=== PATIENT | male | born 1980 | race Caucasian/White ===

== ENCOUNTER 2020-06-02 23:51 | Inpatient (IN) ==
[2020-06-03] MEDS ORDERED: Gadolinium Contrast Agent (WT Based) IV PRN ×2 (00:20→08:22)
[2020-06-03] MEDS ORDERED: Vancomycin 1,250 MG/262.5 ML IV.SOLN IVPB ONE (00:23)
[2020-06-03] MEDS ORDERED: MetroNIDAZOLE 500 MG/100 ML 500 MG/100 ML BAG IVPB ONE (00:23)
[2020-06-03] MEDS ORDERED: Cefepime HCl 2,000 MG in 0.9 % Sodium Chloride Mini Bag 100 ML IVPB ONE (00:23)
[2020-06-03] MEDS ORDERED: Acyclovir 500 MG in D5% in Water 100 ML IVPB ONE (00:25)
[2020-06-03] MEDS ORDERED: Morphine Sulfate 2 MG/ML SYRINGE IVP ONE (00:55)
[2020-06-03 01:06] LABS: Basophils % 0.3 %; Eosinophils % 0.1 %; Hematocrit 34.9 % (37.5-50.1); Hemoglobin 11.7 g/dL (12.9-16.9); Immature Granulocytes % 0.3 % (0-4); Lymphocytes # 1.7 K/mcL (0.6-4.6); Lymphocytes % 18.8 %; Mean Corpuscular HGB Conc 33.5 g/dL (31.6-35.5); Mean Corpuscular Hemoglobin 28.7 pg (28.0-33.3); Mean Corpuscular Volume 85.5 fL (83.0-100.0); Mean Platelet Volume 10.1 fL (9.4-12.4); Monocytes # 1.3 K/mcL (0.0-1.3); Monocytes % 14.5 %; Platelet Count 120 K/mcL (140-400); Red Blood Count 4.08 M/mcL (4.19-5.50); Red Cell Distribution Width 13.9 % (11.5-14.5)
[2020-06-03 01:07] LABS: INR 1.3; Prothrombin Time 15.3 Seconds (9.4-12.1)
[2020-06-03 01:18] LABS: Activated Partial Thrombo Time 31.8 Seconds (26.0-36.0)
[2020-06-03 01:25] LABS: Alanine Aminotransferase 29 Units/L (7-52); Albumin 3.6 g/dL (3.5-5.7); Alkaline Phosphatase 113 Units/L (34-104); Aspartate Amino Transferase 19 Units/L (13-39); BUN/Creatinine Ratio 19 (6-26); Bilirubin,Direct 0.2 mg/dL (0.0-0.2); Bilirubin,Indirect 0.6 mg/dL (0.0-1.0); Bilirubin,Total 0.8 mg/dL (0.3-1.0); Blood Urea Nitrogen 15 mg/dL (6-20); Carbon Dioxide 24 mEq/L (23-29); Chloride 96 mEq/L (98-107); Globulin 3.5 g/dL (2.4-3.5); Glucose 125 mg/dL (70-105); Lipase 6 Units/L (11-82); Magnesium 1.4 mg/dL (1.6-2.6); Osmolality,Calculated 272 (280-300); Phosphorous 3.2 mg/dL (2.7-4.5); Sodium 130 mEq/L (136-145); Total Protein 7.1 g/dL (6.4-8.9); eGFR For African Americans > 60 (> 60); eGFR For Non-African Americans > 60 (> 60)
[2020-06-03 01:26] LABS: Troponin I < 0.03 ng/mL (< 0.04)
[2020-06-03] MEDS ORDERED: *HR* HYDROmorphone (PF) 1 MG/ML SYRINGE IVP ONE ×2 (01:43→02:32)
[2020-06-03 01:57] LABS: Bacteria,Urine Few per hpf (None-Few); Bilirubin,Urine Negative (Negative); Blood,Urine Large (Negative); Calcium Oxalate Crystals,Urine Present; Clarity,Urine Clear (Clear); Color,Urine Yellow (Yellow); Glucose,Urine (UA) Normal (Normal); Ketones,Urine Negative (Negative); Leukocyte Esterase,Urine Negative (Negative); Nitrite,Urine Negative (Negative); PH,Urine 6.5 pH Units (5.0-8.0); Protein,Urine 50 mg/dL (Neg-Trace); RBC,Urine TNTC per hpf (0-3); Specific Gravity,Urine 1.025 (1.010-1.025); Squamous Epithelial Cell,Urine Few per hpf (None-Few); Urobilinogen,Urine >=8.0 mg/dL (Normal)
[2020-06-03 03:03] LABS: Amphetamine Screen,Urine Positive ng/mL (Cutoff=1000); Barbiturate Screen,Urine Negative ng/mL (Cutoff=200); Benzodiazepines Screen,Urine Negative ng/mL (Cutoff=200); Cannabinoid Screen,Urine Positive ng/mL (Cutoff = 50); Cocaine Screen,Urine Negative ng/mL (Cutoff= 300); Opiate Screen,Urine Positive ng/mL (Cutoff=300); Phencyclidine Screen,Urine Negative ng/mL (Cutoff=25)
[2020-06-03] MEDS ORDERED: Isovue-370 500 ML BOTTLE IVP ONE ×2 (05:13→08:40)
[2020-06-03 05:59] LABS: Adenovirus Not Detected (Not Detect); Coronavirus 229E Not Detected (Not Detect); Coronavirus HKU1 Not Detected (Not Detect); Coronavirus NL63 Not Detected (Not Detect); Coronavirus OC43 Not Detected (Not Detect)
[2020-06-03 06:00] LABS: Bordetella Pertussis Not Detected (Not Detect); Chlamydophila pneumoniae Not Detected (Not Detect); Human Metapneumovirus Not Detected (Not Detect); Human Rhinovirus/Enterovirus Not Detected (Not Detect); Influenza A Subtype 2009 H1 Not Detected (Not Detect); Influenza B Not Detected (Not Detect); Mycoplasma pneumoniae Not Detected (Not Detect); Parainfluenza Virus 1 Not Detected (Not Detect); Parainfluenza Virus 2 Not Detected (Not Detect); Parainfluenza Virus 3 Not Detected (Not Detect); Parainfluenza Virus 4 Not Detected (Not Detect); Respiratory Syncytial Virus Not Detected (Not Detect)
[2020-06-03] MEDS ORDERED: Ondansetron 4 MG/2 ML VIAL IVP PRN (08:18)
[2020-06-03] MEDS ORDERED: Naloxone 0.4 MG/ML INJ IVP PRN (08:18)
[2020-06-03] MEDS ORDERED: Perflutren Lipid Microsphere 1.3 ML in 0.9 % Sodium Chloride 8.7 ML IVP PRN (08:21)
[2020-06-03] MEDS: Ketorolac 15 MG/ML VIAL IVP PRN ×3 (09:22→22:33)
[2020-06-03] MEDS: Ringers Solution, Lactated 1,000 ML IVC SCH (12:20)
[2020-06-03] MEDS: Nicotine 21 MG PATCH.TD24 TD SCH (12:21)
[2020-06-03] MEDS: Piperacillin/Tazobactam 3.375 GM in 0.9 % Sodium Chloride Mini Bag 100 ML IVPB SCH ×2 (12:22→18:06)
[2020-06-03] MEDS: MethylPREDNISolone 40 MG/ML VIAL IVP SCH (16:24)
[2020-06-03] MEDS: *HR* Heparin 5,000 UNIT/ML VIAL SQ SCH (16:27)
[2020-06-03 18:29] LABS: Acinetobacter baumannii by PCR Not Detected (Not Detect); Candida albicans by PCR Not Detected (Not Detect); Candida glabrata by PCR Not Detected (Not Detect); Candida krusei by PCR Not Detected (Not Detect); Candida parapsilosis by PCR Not Detected (Not Detect); Candida tropicalis by PCR Not Detected (Not Detect); Enterobacter cloacae Cmplx PCR Not Detected (Not Detect); Enterobacteriaceae by PCR Not Detected (Not Detect); Enterococcus by PCR Not Detected (Not Detect); Escherichia coli by PCR Not Detected (Not Detect); Klebsiella oxytoca by PCR Not Detected (Not Detect); Klebsiella pneumoniae by PCR Not Detected (Not Detect); Proteus by PCR Not Detected (Not Detect); Pseudomonas aeruginosa by PCR Not Detected (Not Detect); Serratia marcescens by PCR Not Detected (Not Detect); Staphylococcus aureus by PCR DETECTED (Not Detect); Staphylococcus by PCR Not Detected (Not Detect); Streptococcus agalactiae(B)PCR Not Detected (Not Detect); Streptococcus by PCR Not Detected (Not Detect); Streptococcus pneumoniae PCR Not Detected (Not Detect); Streptococcus pyogenes (A) PCR Not Detected (Not Detect); mecA Methicillin-Resist Gene Not Detected (Not Detect)
[2020-06-04] MEDS ORDERED: methocarbamoL 500 MG TABLET PO ONE (00:15)
[2020-06-04] MEDS: Nafcillin 3,000 MG in 0.9 % Sodium Chloride 100 ML IVPB SCH ×4 (00:36→18:49)
[2020-06-04] MEDS: Ringers Solution, Lactated 1,000 ML IVC SCH (00:40)
[2020-06-04 01:14] LABS: Basophils % 0.2 %; Hematocrit 32.3 % (37.5-50.1); Hemoglobin 11.1 g/dL (12.9-16.9); Immature Granulocytes % 0.7 % (0-4); Lymphocytes # 0.6 K/mcL (0.6-4.6); Lymphocytes % 10.4 %; Mean Corpuscular HGB Conc 34.4 g/dL (31.6-35.5); Mean Corpuscular Hemoglobin 29.4 pg (28.0-33.3); Mean Corpuscular Volume 85.7 fL (83.0-100.0); Mean Platelet Volume 10.5 fL (9.4-12.4); Monocytes # 0.2 K/mcL (0.0-1.3); Monocytes % 4.2 %; Neutrophils # 4.9 K/mcL (1.6-8.9); Platelet Count 115 K/mcL (140-400); Red Blood Count 3.77 M/mcL (4.19-5.50); Segmented Neutrophils % 84.5 %; White Blood Count 5.8 K/mcL (4.3-11.1)
[2020-06-04 01:34] LABS: BUN/Creatinine Ratio 27 (6-26); Blood Urea Nitrogen 18 mg/dL (6-20); Calcium 8.1 mg/dL (8.6-10.3); Carbon Dioxide 22 mEq/L (23-29); Chloride 105 mEq/L (98-107); Glucose 207 mg/dL (70-105); Magnesium 1.6 mg/dL (1.6-2.6); Osmolality,Calculated 286 (280-300); Phosphorous 2.5 mg/dL (2.7-4.5); Potassium 3.8 mEq/L (3.5-5.1); Sodium 134 mEq/L (136-145); eGFR For African Americans > 60 (> 60); eGFR For Non-African Americans > 60 (> 60)
[2020-06-04] MEDS: *HR* Heparin 5,000 UNIT/ML VIAL SQ SCH ×2 (04:25→17:01)
[2020-06-04] MEDS: Ketorolac 15 MG/ML VIAL IVP PRN ×3 (04:25→17:00)
[2020-06-04] MEDS: Nicotine 21 MG PATCH.TD24 TD SCH (10:27)
[2020-06-04] MEDS: MethylPREDNISolone 40 MG/ML VIAL IVP SCH (10:43)
[2020-06-04] MEDS: *HR* Buprenorphine HCl 8 MG TAB.SUBL SL SCH (11:41)
[2020-06-05] MEDS: Ketorolac 15 MG/ML VIAL IVP PRN ×4 (00:16→19:37)
[2020-06-05] MEDS: Nafcillin 3,000 MG in 0.9 % Sodium Chloride 100 ML IVPB SCH ×4 (00:58→23:50)
[2020-06-05] MEDS: *HR* Heparin 5,000 UNIT/ML VIAL SQ SCH ×2 (03:47→16:51)
[2020-06-05] MEDS: Nicotine 21 MG PATCH.TD24 TD SCH (08:04)
[2020-06-05] MEDS: *HR* Buprenorphine HCl 8 MG TAB.SUBL SL SCH (08:05)
[2020-06-05 08:56] LABS: Hematocrit 32.8 % (37.5-50.1); Hemoglobin 11.1 g/dL (12.9-16.9); Mean Corpuscular HGB Conc 33.8 g/dL (31.6-35.5); Mean Corpuscular Hemoglobin 29.4 pg (28.0-33.3); Mean Corpuscular Volume 86.8 fL (83.0-100.0); Mean Platelet Volume 9.9 fL (9.4-12.4); Platelet Count 171 K/mcL (140-400); Red Blood Count 3.78 M/mcL (4.19-5.50); Red Cell Distribution Width 14.4 % (11.5-14.5); White Blood Count 6.9 K/mcL (4.3-11.1)
[2020-06-05 09:07] LABS: BUN/Creatinine Ratio 26 (6-26); Blood Urea Nitrogen 15 mg/dL (6-20); Calcium 8.2 mg/dL (8.6-10.3); Carbon Dioxide 24 mEq/L (23-29); Chloride 108 mEq/L (98-107); Glucose 113 mg/dL (70-105); Osmolality,Calculated 286 (280-300); Phosphorous 2.1 mg/dL (2.7-4.5); Potassium 3.5 mEq/L (3.5-5.1); Sodium 137 mEq/L (136-145); eGFR For African Americans > 60 (> 60); eGFR For Non-African Americans > 60 (> 60)
[2020-06-05] MEDS ORDERED: *HR* HYDROcodone/Acet 5/325 mg TABLET PO ONE (17:11)
[2020-06-05 23:32] VITALS: BP 123/82
[2020-06-06] MEDS: Ketorolac 15 MG/ML VIAL IVP PRN (01:35)
== END 2020-06-06 02:30 | disposition short-term general hospital (02) | DRG 193 ==
LOC: EMEROOARM 23:51 → 3BNU 23:51 → SUATTDRO 06-04 12:17
PROVIDERS: ADMIT Family Medicine; ATTEND Nurse Practitioner Adult Health